=== PATIENT | female | born 1960 | race Two or more races ===

== ENCOUNTER 2025-02-15 02:47 | Inpatient (IN) | payer MEDICAID, OTHER ==
[2025-02-15] VITALS (15 sets, daily range): BP systolic 117–142; BP diastolic 57–78; TEMP 97.9–98.6; O2SAT 98–100
[~2025-02-15] VITALS: Ht 157.5 cm; Wt 84.8 kg
[2025-02-15 03:19] LABS: ABG BASE EXCESS -7.4 mmol/L (-2.0-3.0); ABG OXYGEN SATURATION 80.8 % (94.0-98.0); ABG PCO2 43.4 mmHg (32.0-45.0); ABG PH 7.262 (7.350-7.450); ABG PO2 50.3 mmHg (83.0-108.0); ABG TOTAL HEMOGLOBIN 9.1 G/dL (12.0-16.0); FRACTIONATED INSPIRED OXYGEN 21.0 %; SITE, ABG RIGHT RADIAL
[2025-02-15 03:25] LABS: PLATELET COUNT (AUTO) 332 K/uL (150-450); RED BLOOD CELL COUNT(AUTO) 2.99 MIL/uL (4.0-5.2); RED CELL DISTRIBUTION WIDTH 13.0 % (11.5-15.0); WHITE BLOOD COUNT (AUTO) 14.3 K/uL (4.3-11.0)
[2025-02-15 03:43] LABS: CALCIUM, SERUM 8.1 mg/dL (8.5-10.1); CREATININE 2.5 mg/dL (0.6-1.3); SODIUM SERUM 131 mmol/L (136-145); UREA NITROGEN, BLOOD 76 mg/dL (7-18)
[2025-02-15] MEDS ORDERED: INSULIN REGULAR, HUMAN 100 UNIT/ML 10 ML VIAL ONE (03:43)
[2025-02-15 03:44] LABS: INR 1.03 (0.91-1.10)
[2025-02-15] MEDS: INSULIN REGULAR, HUMAN 100 UNIT/ML 10 ML VIAL IV ONE (03:47)
[2025-02-15 03:51] LABS: LACTIC ACID 1.5 mmol/L (0.4-2.0)
[2025-02-15 03:57] LABS: ASPARTATE AMINOTRANSFERASE 32 U/L (15-37); TOTAL PROTEIN, SERUM 6.9 g/dL (6.4-8.2)
[2025-02-15 04:54] LABS: APPEARANCE,URINE CLEAR (CLEAR); BLOOD, URINE NEGATIVE Ery/uL (NEGATIVE); LEUKOCYTE ESTERASE ,URINE NEGATIVE (NEGATIVE); NITRITE, URINE NEGATIVE (NEGATIVE); UGLUCOSE 1+ mg/dL (NEGATIVE)
[2025-02-15 05:01] LABS: ADD URINE CULTURE NO; SQUAMOUS EPITHELIAL CELL,UR Few /HPF (None Seen)
[2025-02-15] MEDS ORDERED: FUROSEMIDE 40 MG/4 ML VIAL ONE ×2 (05:06→09:40)
[2025-02-15] MEDS: FUROSEMIDE 40 MG/4 ML VIAL IV ONE (05:14)
[2025-02-15] MEDS ORDERED: MAGNESIUM HYDROXIDE 30 ML UDC PO PRN (05:30)
[2025-02-15] MEDS ORDERED: DEXTROSE 50%-WATER 50 ML DISP.SYRIN IV PRN (05:30)
[2025-02-15] MEDS ORDERED: ONDANSETRON HCL/PF 4 MG/2 ML VIAL IVP PRN (05:30)
[2025-02-15] MEDS: ENOXAPARIN SODIUM 40 MG/0.4 ML DISP.SYRIN SQ SCH (06:30)
[2025-02-15] MEDS ORDERED: ENOXAPARIN SODIUM 40 MG/0.4 ML DISP.SYRIN SQ ONE (06:36)
[2025-02-15] MEDS: BLOOD SUGAR DIAGNOSTIC 1 EACH STRIP VI SCH (07:40)
[2025-02-15] MEDS: INSULIN REGULAR, HUMAN 100 UNIT/ML 3 ML VIAL SQ PRN (07:54)
[2025-02-15] MEDS ORDERED: ATOR80TA PO (08:26)
[2025-02-15] MEDS ORDERED: CARV12.52 PO (08:26)
[2025-02-15] MEDS ORDERED: EMPA10TA PO (08:26)
[2025-02-15] MEDS ORDERED: NIFE90TA61 PO (08:26)
[2025-02-15] MEDS ORDERED: METF-440 PO (08:26)
[2025-02-15] MEDS ORDERED: ASPI-1169 PO (08:26)
[2025-02-15] MEDS ORDERED: EZET10TA16 PO (08:26)
[2025-02-15] MEDS ORDERED: LOSA100T3 PO (08:26)
[2025-02-15] MEDS ORDERED: GABA300C PO (08:26)
[2025-02-15] MEDS ORDERED: PANTOPRAZOLE 40 MG VIAL ONE (09:40)
[2025-02-15] MEDS: FUROSEMIDE 40 MG/4 ML VIAL IV SCH (09:50)
[2025-02-15] MEDS: PANTOPRAZOLE 40 MG VIAL IV SCH (09:50)
[2025-02-15 10:27] LABS: ABG BASE EXCESS -4.1 mmol/L (-2.0-3.0); ABG OXYGEN SATURATION 93.3 % (94.0-98.0); ABG PCO2 40.3 mmHg (32.0-45.0); ABG PH 7.341 (7.350-7.450); ABG PO2 70.4 mmHg (83.0-108.0); ABG TOTAL HEMOGLOBIN 9.3 G/dL (12.0-16.0); FRACTIONATED INSPIRED OXYGEN 60.0 %; SET RATE, BG 16.0; SITE, ABG RIGHT BRACHIAL
[2025-02-15 13:33] LABS: PLATELET COUNT (AUTO) 381 K/uL (150-450); RED BLOOD CELL COUNT(AUTO) 3.17 MIL/uL (4.0-5.2); RED CELL DISTRIBUTION WIDTH 12.7 % (11.5-15.0); WHITE BLOOD COUNT (AUTO) 11.5 K/uL (4.3-11.0)
[2025-02-15 13:40] LABS: CALCIUM, SERUM 8.5 mg/dL (8.5-10.1); CREATININE 2.6 mg/dL (0.6-1.3); SODIUM SERUM 135.0 mmol/L (136-145); UREA NITROGEN, BLOOD 77.0 mg/dL (7-18)
[2025-02-16] VITALS (24 sets, daily range): BP systolic 103–157; BP diastolic 50–84; TEMP 97.6–98.8; O2SAT 95–99
[2025-02-16 04:25] LABS: CALCIUM, SERUM 8.6 mg/dL (8.5-10.1); CREATININE 2.3 mg/dL (0.6-1.3); PHOSPHORUS 4.1 mg/dL (2.5-4.9); SODIUM SERUM 138.0 mmol/L (136-145); UREA NITROGEN, BLOOD 75.0 mg/dL (7-18)
[2025-02-16 04:32] LABS: LDL 36.0 mg/dL (0-99)
[2025-02-16 04:39] LABS: PLATELET COUNT (AUTO) 381 K/uL (150-450); RED BLOOD CELL COUNT(AUTO) 3.10 MIL/uL (4.0-5.2); RED CELL DISTRIBUTION WIDTH 12.9 % (11.5-15.0); WHITE BLOOD COUNT (AUTO) 8.8 K/uL (4.3-11.0)
[2025-02-16] MEDS: *INSULIN REGULAR(HUMULIN R)HUM 100 UNIT/ML VIAL SQ PRN (21:52)
[2025-02-16 22:59] LABS: PROTEIN, BODY FLUID 3.7 G/DL
[2025-02-16 23:05] LABS: APPEARANCE,SPUN,BODY FLUID CLEAR (CLEAR); TOTAL VOLUME,BODY FLUID 1000 mL; WBC, BODY FLUID 3181 /cu. mm. (0-200)
[2025-02-16 23:38] LABS: MONOCYTES,BODY FLUID 3 %
[2025-02-17] VITALS (19 sets, daily range): BP systolic 115–159; BP diastolic 59–87; TEMP 98–98.4; O2SAT 90–98
[2025-02-17 04:39] LABS: PLATELET COUNT (AUTO) 477 K/uL (150-450); RED BLOOD CELL COUNT(AUTO) 3.54 MIL/uL (4.0-5.2); RED CELL DISTRIBUTION WIDTH 13.3 % (11.5-15.0); WHITE BLOOD COUNT (AUTO) 8.5 K/uL (4.3-11.0)
[2025-02-17 05:33] LABS: CREATINE KINASE, TOTAL 22.0 U/L (26-192); SODIUM SERUM 142.0 mmol/L (136-145)
[2025-02-17 05:34] LABS: ASPARTATE AMINOTRANSFERASE 20.0 U/L (15-37); CALCIUM, SERUM 8.6 mg/dL (8.5-10.1); CREATININE 1.9 mg/dL (0.6-1.3); PHOSPHORUS 4.6 mg/dL (2.5-4.9); TOTAL PROTEIN, SERUM 7.4 g/dL (6.4-8.2); UREA NITROGEN, BLOOD 65.0 mg/dL (7-18)
[2025-02-17 16:54] LABS: PROTEIN, BODY FLUID 4.3 G/DL
[2025-02-17 18:13] LABS: APPEARANCE,SPUN,BODY FLUID CLEAR (CLEAR); TOTAL VOLUME,BODY FLUID 350 mL; WBC, BODY FLUID 2302 /cu. mm. (0-200)
[2025-02-17 18:14] LABS: MONOCYTES,BODY FLUID 3 %
[2025-02-18] VITALS: BP 151/74; TEMP 99; O2SAT 95
[2025-02-18 04:00] VITALS: BP 141/65; TEMP 97.7; O2SAT 94
[2025-02-18 06:51] LABS: PLATELET COUNT (AUTO) 466 K/uL (150-450); RED BLOOD CELL COUNT(AUTO) 3.49 MIL/uL (4.0-5.2); RED CELL DISTRIBUTION WIDTH 12.9 % (11.5-15.0); WHITE BLOOD COUNT (AUTO) 8.0 K/uL (4.3-11.0)
[2025-02-18 06:58] LABS: ASPARTATE AMINOTRANSFERASE 23.0 U/L (15-37); CALCIUM, SERUM 8.4 mg/dL (8.5-10.1); CREATININE 2.0 mg/dL (0.6-1.3); PHOSPHORUS 4.5 mg/dL (2.5-4.9); SODIUM SERUM 139.0 mmol/L (136-145); TOTAL PROTEIN, SERUM 7.1 g/dL (6.4-8.2); UREA NITROGEN, BLOOD 68.0 mg/dL (7-18)
[2025-02-18 08:00] VITALS: BP 158/69; O2SAT 99
[2025-02-18 08:07] LABS: PTH, INTACT 60 pg/mL (15-65)
[2025-02-18] MEDS: NEOMY SULF/BACITRAC ZN/POLY 15 GM TUBE TP SCH (11:15)
[2025-02-18 12:01] VITALS: BP 150/73; TEMP 98.2; O2SAT 99
[2025-02-18 16:00] VITALS: BP 130/74; TEMP 98.2; O2SAT 97
[2025-02-18 20:00] VITALS: BP 152/80; TEMP 98.2; O2SAT 96
[2025-02-19] VITALS (8 sets, daily range): BP systolic 121–158; BP diastolic 64–81; TEMP 97.5–98.4; O2SAT 93–99
[2025-02-19 07:21] LABS: PLATELET COUNT (AUTO) 548 K/uL (150-450); RED BLOOD CELL COUNT(AUTO) 3.69 MIL/uL (4.0-5.2); RED CELL DISTRIBUTION WIDTH 13.1 % (11.5-15.0); WHITE BLOOD COUNT (AUTO) 9.2 K/uL (4.3-11.0)
[2025-02-19 07:26] LABS: ASPARTATE AMINOTRANSFERASE 20.0 U/L (15-37); CALCIUM, SERUM 8.8 mg/dL (8.5-10.1); CREATININE 1.9 mg/dL (0.6-1.3); PHOSPHORUS 4.6 mg/dL (2.5-4.9); SODIUM SERUM 139.0 mmol/L (136-145); TOTAL PROTEIN, SERUM 7.8 g/dL (6.4-8.2); UREA NITROGEN, BLOOD 68.0 mg/dL (7-18)
[2025-02-19] MEDS ORDERED: METFORMIN 500 MG TABLET PO SCH (09:00)
[2025-02-19] MEDS: ASPIRIN 81 MG TAB.CHEW PO SCH (09:34)
[2025-02-19] MEDS: EZETIMIBE 10 MG TABLET PO SCH (09:34)
[2025-02-19] MEDS: CARVEDILOL 12.5 MG TABLET PO SCH (09:35)
[2025-02-19] MEDS: EMPAGLIFLOZIN 10 MG TABLET PO SCH (09:45)
[2025-02-19] MEDS: POTASSIUM CHLORIDE 10 MEQ TABLET.SA PO ONE (11:51)
[2025-02-19] MEDS: GABAPENTIN 300 MG CAPSULE PO SCH (21:05)
[2025-02-20] VITALS (7 sets, daily range): BP systolic 99–124; BP diastolic 55–69; TEMP 97.5–98.4; O2SAT 90–99
[2025-02-20 08:07] LABS: CALCIUM, SERUM 8.7 mg/dL (8.5-10.1); CREATININE 2.4 mg/dL (0.6-1.3); SODIUM SERUM 144.0 mmol/L (136-145); UREA NITROGEN, BLOOD 71.0 mg/dL (7-18)
[2025-02-20] MEDS: ATORVASTATIN 40 MG TABLET PO SCH (09:10)
[2025-02-20] MEDS: PANTOPRAZOLE 40 MG TABLET.DR PO SCH (09:10)
[2025-02-20] MEDS: NIFEdipine XL (30MG) 30 MG TAB PO SCH (09:10)
[2025-02-20] MEDS: LOSARTAN POTASSIUM 50 MG TABLET PO SCH (09:11)
[2025-02-20] MEDS: ENOXAPARIN SODIUM 30 MG/0.3 ML DISP.SYRIN SQ SCH (09:14)
[2025-02-20] MEDS: POTASSIUM CHLORIDE 10 MEQ TABLET.SA PO ONE (11:54)
[2025-02-20] MEDS: MAG HYDROX/AL HYDROX/SIMETH 30 ML UDC PO PRN (16:24)
[2025-02-21] VITALS (9 sets, daily range): BP systolic 94–120; BP diastolic 51–66; TEMP 97.6–98.1; O2SAT 90–97
[2025-02-21 07:54] LABS: CALCIUM, SERUM 8.6 mg/dL (8.5-10.1); CREATININE 2.4 mg/dL (0.6-1.3); SODIUM SERUM 141.0 mmol/L (136-145); UREA NITROGEN, BLOOD 72.0 mg/dL (7-18)
[2025-02-21 08:17] LABS: PHOSPHORUS 5.0 mg/dL (2.5-4.9)
[2025-02-22 04:00] VITALS: BP 114/62; TEMP 98.2; O2SAT 94
[2025-02-22 07:13] LABS: CALCIUM, SERUM 8.7 mg/dL (8.5-10.1); CREATININE 2.7 mg/dL (0.6-1.3); SODIUM SERUM 141.0 mmol/L (136-145); UREA NITROGEN, BLOOD 74.0 mg/dL (7-18)
[2025-02-22 08:00] VITALS: BP 114/78; TEMP 98.1; O2SAT 96
[2025-02-22] MEDS: ACETAMINOPHEN 325 MG TABLET PO PRN (08:55)
[2025-02-22 16:00] VITALS: BP 100/62; TEMP 98.3; O2SAT 96
[2025-02-24 08:07] LABS: *SPE A/G RATIO 0.5 (0.7-1.7); *SPE ALBUMIN 2.1 g/dL (2.9-4.4); *SPE ALPHA-1-GLOBULIN 0.5 g/dL (0.0-0.4); *SPE ALPHA-2-GLOBULIN 1.3 g/dL (0.4-1.0); *SPE BETA GLOBULIN 1.4 g/dL (0.7-1.3); *SPE GLOBULIN, TOTAL 4.6 g/dL (2.2-3.9); *SPE M-SPIKE Not Observed g/dL (Not Observed); *SPE PROTEIN TOTAL 6.7 g/dL (6.0-8.5); *SPEGAMMA GLOBULIN 1.4 g/dL (0.4-1.8)
== END 2025-02-22 15:30 | disposition home health service (06) | DRG 720 ==
LOC: ER 02:49 → TELE IN 06:05 → ICU 07:58 → ICU IN 08:19 → ICU 09:38 → TELE1 02-17 17:54 → MEDSG1 02-20 10:08
PROVIDERS: ATTEND Internal Medicine
PROC: 5A09357 Assistance with Respiratory Ventilation, Less than 24 Consecutive Hours, Continuous Positive Airway Pressure (ICD-10-PCS; principal; 2025-02-15)
PROC: 0W993ZZ Drainage of Right Pleural Cavity, Percutaneous Approach (ICD-10-PCS; 2025-02-16)
PROC: 0W9B30Z Drainage of Left Pleural Cavity with Drainage Device, Percutaneous Approach (ICD-10-PCS; 2025-02-17)
DX: A41.9 Sepsis, unspecified organism (principal); J96.21 Acute and chronic respiratory failure with hypoxia; N17.0 Acute kidney failure with tubular necrosis; E43 Unspecified severe protein-calorie malnutrition; I31.39 Other pericardial effusion (noninflammatory); D68.59 Other primary thrombophilia; I50.33 Acute on chronic diastolic (congestive) heart failure; E87.1 Hypo-osmolality and hyponatremia; E88.09 Other disorders of plasma-protein metabolism, not elsewhere classified; J15.9 Unspecified bacterial pneumonia; I13.0 Hypertensive heart and chronic kidney disease with heart failure and stage 1 through stage 4 chronic kidney disease, or unspecified chronic kidney disease; I69.351 Hemiplegia and hemiparesis following cerebral infarction affecting right dominant side; N18.9 Chronic kidney disease, unspecified; D64.9 Anemia, unspecified; J96.22 Acute and chronic respiratory failure with hypercapnia; Z20.822 Contact with and (suspected) exposure to COVID-19; E11.22 Type 2 diabetes mellitus with diabetic chronic kidney disease; Z88.6 Allergy status to analgesic agent; Z68.36 Body mass index [BMI] 36.0-36.9, adult; E66.9 Obesity, unspecified; J98.11 Atelectasis; J90 Pleural effusion, not elsewhere classified; K80.20 Calculus of gallbladder without cholecystitis without obstruction; E11.65 Type 2 diabetes mellitus with hyperglycemia; R59.0 Localized enlarged lymph nodes; M89.8X9 Other specified disorders of bone, unspecified site; E87.5 Hyperkalemia; E87.6 Hypokalemia; L89.890 Pressure ulcer of other site, unstageable
CPT/HCPCS: 36415; 36600; 71045-TC; 71250-TC; 76770-TC; 80048-TC; 80053-TC; 80061-TC; 80076-TC; 81001; 82550-TC; 82803-TC; 82962-TC; 83605-TC; 83735-TC; 83880; 83970; 84100-TC; 84155; 84165; 84484-TC; 85025-TC; 85730-TC; 86850-TC; 87040-TC; 87070-TC; 87075-TC; 87081-TC; 87086-TC; 87102-TC; 89051-TC; 93307-TC; 94660; 94799-TC; 97110-TC; 97116-TC; 97530-TC; G0378; J1650; J1815; J1938; J2470

== ENCOUNTER 2025-02-26 13:01 | Inpatient (IN) | payer MEDICAID ==
[~2025-02-26] VITALS: Ht 157.5 cm; Wt 85.3 kg
[2025-02-26] VITALS (21 sets, daily range): BP systolic 71–95; BP diastolic 48–64; TEMP 96.7; O2SAT 93–99
[~2025-02-26 13:01] MED LIST: ASPI-1169 PO; ATOR80TA PO; CARV12.52 PO; EMPA10TA PO; EZET10TA16 PO; GABA300C PO; LOSA100T3 PO; METF-440 PO; NIFE90TA61 PO
[2025-02-26 14:14] LABS: PLATELET COUNT (AUTO) 388 K/uL (150-450); RED BLOOD CELL COUNT(AUTO) 3.24 MIL/uL (4.0-5.2); RED CELL DISTRIBUTION WIDTH 13.4 % (11.5-15.0); WHITE BLOOD COUNT (AUTO) 15.1 K/uL (4.3-11.0)
[2025-02-26 14:21] LABS: CALCIUM, SERUM 8.0 mg/dL (8.5-10.1); CREATININE 3.0 mg/dL (0.6-1.3); SODIUM SERUM 124 mmol/L (136-145)
[2025-02-26 14:30] LABS: UREA NITROGEN, BLOOD 114 mg/dL (7-18)
[2025-02-26 14:36] LABS: ASPARTATE AMINOTRANSFERASE 25 U/L (15-37)
[2025-02-26 14:37] LABS: NT-PRO BNP 1255 pg/mL (0-125); TOTAL PROTEIN, SERUM 7.5 g/dL (6.4-8.2)
[2025-02-26] MEDS ORDERED: COLC0.6C3 PO (14:41)
[2025-02-26] MEDS ORDERED: CEFTRIAXONE 1 G VIAL ONE (15:02)
[2025-02-26 15:18] LABS: INR 1.0 (0.91-1.10)
[2025-02-26] MEDS: IV NS 0.9% 1,000 ML BAG IV ONE (15:34)
[2025-02-26] MEDS: CEFTRIAXONE 1GM BAG (ER ONLY) 50 ML IV ONE (15:34)
[2025-02-26 15:53] LABS: APPEARANCE,URINE CLEAR (CLEAR); BLOOD, URINE NEGATIVE Ery/uL (NEGATIVE); LEUKOCYTE ESTERASE ,URINE TRACE (NEGATIVE); NITRITE, URINE NEGATIVE (NEGATIVE); UGLUCOSE 1+ mg/dL (NEGATIVE)
[2025-02-26 16:00] LABS: ADD URINE CULTURE YES
[2025-02-26] MEDS ORDERED: MAGNESIUM HYDROXIDE 30 ML UDC PO PRN (16:00)
[2025-02-26] MEDS ORDERED: ONDANSETRON HCL/PF 4 MG/2 ML VIAL IVP PRN (16:00)
[2025-02-26] MEDS: AZITHROMYCIN 500 MG in IV D5W 250 ML IV ONE (16:00)
[2025-02-26] MEDS ORDERED: INSULIN REGULAR, HUMAN 100 UNIT/ML 3 ML VIAL SQ PRN (17:00)
[2025-02-26] MEDS ORDERED: DEXTROSE 50%-WATER 50 ML DISP.SYRIN IV PRN (17:00)
[2025-02-26] MEDS: BLOOD SUGAR DIAGNOSTIC 1 EACH STRIP IN SCH (17:30)
[2025-02-26] MEDS ORDERED: NOREPINEPHRINE 8 MG in IV D5W 242 ML IV PRN ×2 (19:00→19:15)
[2025-02-26] MEDS: HEPARIN SODIUM, PORCINE 5000 UNITS/1 ML VIAL SQ SCH (21:49)
[2025-02-26] MEDS: INSULIN REGULAR, HUMAN 100 UNIT/ML 3 ML VIAL SQ PRN (21:51)
[2025-02-27] VITALS (36 sets, daily range): BP systolic 88–115; BP diastolic 47–74; TEMP 97.1–98.2; O2SAT 92–97
[2025-02-27 05:15] LABS: CALCIUM, SERUM 7.8 mg/dL (8.5-10.1); CREATININE 2.7 mg/dL (0.6-1.3); PHOSPHORUS 5.8 mg/dL (2.5-4.9); SODIUM SERUM 131.0 mmol/L (136-145)
[2025-02-27 05:19] LABS: PLATELET COUNT (AUTO) 359 K/uL (150-450); RED BLOOD CELL COUNT(AUTO) 3.16 MIL/uL (4.0-5.2); RED CELL DISTRIBUTION WIDTH 13.3 % (11.5-15.0); WHITE BLOOD COUNT (AUTO) 10.0 K/uL (4.3-11.0)
[2025-02-27 05:33] LABS: UREA NITROGEN, BLOOD 113.0 mg/dL (7-18)
[2025-02-27] MEDS: EZETIMIBE 10 MG TABLET PO SCH (08:43)
[2025-02-27] MEDS: ASPIRIN 81 MG TAB.CHEW PO SCH (08:43)
[2025-02-27] MEDS: PANTOPRAZOLE 40 MG VIAL IV SCH (08:43)
[2025-02-27] MEDS: ATORVASTATIN 40 MG TABLET PO SCH (08:43)
[2025-02-27] MEDS: POTASSIUM CHLORIDE 20 MEQ TAB.PRT.SR PO ONE (12:54)
[2025-02-27] MEDS ORDERED: CEFTRIAXONE 1 G in IV D5W 50 ML IV SCH (15:00)
[2025-02-27] MEDS: CEFTRIAXONE 1 G in IV D5W 50 ML IV SCH (15:13)
[2025-02-27] MEDS ORDERED: AZITHROMYCIN 500 MG in IV D5W 250 ML IV SCH (16:00)
[2025-02-27] MEDS: AZITHROMYCIN 500 MG in IV D5W 250 ML IV SCH (16:04)
[2025-02-28] VITALS (8 sets, daily range): BP systolic 106–122; BP diastolic 61–72; TEMP 97.9–98.7; O2SAT 94–96
[2025-02-28 07:22] LABS: PLATELET COUNT (AUTO) 429 K/uL (150-450); RED BLOOD CELL COUNT(AUTO) 3.32 MIL/uL (4.0-5.2); RED CELL DISTRIBUTION WIDTH 13.1 % (11.5-15.0); WHITE BLOOD COUNT (AUTO) 12.4 K/uL (4.3-11.0)
[2025-02-28 07:36] LABS: CALCIUM, SERUM 8.0 mg/dL (8.5-10.1); CREATININE 2.3 mg/dL (0.6-1.3); PHOSPHORUS 5.2 mg/dL (2.5-4.9); SODIUM SERUM 136.0 mmol/L (136-145)
[2025-02-28 08:33] LABS: UREA NITROGEN, BLOOD 98.0 mg/dL (7-18)
[2025-02-28] MEDS: PANTOPRAZOLE 40 MG TABLET.DR PO SCH (09:08)
[2025-02-28] MEDS: MAG HYDROX/AL HYDROX/SIMETH 30 ML UDC PO PRN (11:40)
[2025-03-01] VITALS: BP 120/64; TEMP 98.1; O2SAT 96
[2025-03-01 04:00] VITALS: BP 122/73; TEMP 98; O2SAT 96
[2025-03-01 06:30] LABS: RHEUMATOID FACTOR SCREEN NEGATIVE (NEGATIVE)
[2025-03-01 06:44] LABS: PLATELET COUNT (AUTO) 475 K/uL (150-450); RED BLOOD CELL COUNT(AUTO) 2.96 MIL/uL (4.0-5.2); RED CELL DISTRIBUTION WIDTH 13.2 % (11.5-15.0); WHITE BLOOD COUNT (AUTO) 11.5 K/uL (4.3-11.0)
[2025-03-01 06:53] LABS: CALCIUM, SERUM 8.5 mg/dL (8.5-10.1); CREATININE 2.2 mg/dL (0.6-1.3); PHOSPHORUS 4.5 mg/dL (2.5-4.9); SODIUM SERUM 139.0 mmol/L (136-145)
[2025-03-01 07:00] LABS: UREA NITROGEN, BLOOD 80.0 mg/dL (7-18)
[2025-03-01 07:09] LABS: IRON, SERUM 17.0 ug/dl (50-175)
[2025-03-01 08:00] VITALS: BP 116/65; TEMP 97.9; O2SAT 95
[2025-03-01] MEDS: ACETAMINOPHEN 325 MG TABLET PO PRN (10:12)
[2025-03-01 12:00] VITALS: BP 112/65; TEMP 98.3; O2SAT 95
[2025-03-01 16:00] VITALS: BP 132/74; TEMP 98.3; O2SAT 95
[2025-03-01 16:48] LABS: PROTEIN, BODY FLUID 4.6 G/DL
[2025-03-01 16:55] LABS: TOTAL VOLUME,BODY FLUID 700 mL; WBC, BODY FLUID 1467 /cu. mm. (0-200)
[2025-03-01 16:58] LABS: APPEARANCE,SPUN,BODY FLUID CLEAR (CLEAR)
[2025-03-01 19:24] LABS: MONOCYTES,BODY FLUID 7 %
[2025-03-01 20:00] VITALS: BP 126/73; TEMP 98.6; O2SAT 97
[2025-03-02] VITALS: BP 148/77; TEMP 98.2; O2SAT 98
[2025-03-02 04:00] VITALS: BP 141/72; TEMP 98.2; O2SAT 99
[2025-03-02 07:00] VITALS: BP 145/79; TEMP 98.1; O2SAT 97
[2025-03-02 08:00] VITALS: BP 145/79; TEMP 98.1; O2SAT 97
[2025-03-02 08:02] LABS: PLATELET COUNT (AUTO) 476 K/uL (150-450); RED BLOOD CELL COUNT(AUTO) 3.30 MIL/uL (4.0-5.2); RED CELL DISTRIBUTION WIDTH 13.0 % (11.5-15.0); WHITE BLOOD COUNT (AUTO) 9.0 K/uL (4.3-11.0)
[2025-03-02 08:07] LABS: CANCER AG, 125 162.0 U/mL (0.0-38.1); CANCER AG, 15-3 13.3 U/mL (0.0-25.0); CARCINOEMBRYONIC ANTIGEN (CEA) 4.3 ng/mL (0.0-4.7); IMMUNOGLOBULIN A, SERUM 623 mg/dL (87-352); IMMUNOGLOBULIN M, SERUM 63 mg/dL (26-217)
[2025-03-02 08:12] LABS: CALCIUM, SERUM 8.5 mg/dL (8.5-10.1); CREATININE 1.9 mg/dL (0.6-1.3); PHOSPHORUS 4.1 mg/dL (2.5-4.9); SODIUM SERUM 140.0 mmol/L (136-145); UREA NITROGEN, BLOOD 60.0 mg/dL (7-18)
[2025-03-02] MEDS: POTASSIUM CHLORIDE 20 MEQ TAB.PRT.SR PO SCH (09:39)
[2025-03-02 10:07] LABS: FOLIC ACID 11.4 ng/mL (>3.0); FREE KAPPA LT CHAINS SERUM 142.7 mg/L (3.3-19.4); FREE LAMBDA LT CHAIN SERUM 164.3 mg/L (5.7-26.3); KAPPA/LAMBDA RATIO SERUM 0.87 (0.26-1.65)
[2025-03-02] MEDS ORDERED: DIATR MEGLU/DIATRIZOATE SODIUM 30 ML BOTTLE (GASTROGRAPHIN) ONE (10:30)
[2025-03-02 16:00] VITALS: BP 137/69; TEMP 97.7; O2SAT 95
[2025-03-02 20:00] VITALS: BP 150/73; TEMP 97.7; O2SAT 97
[2025-03-03 04:01] VITALS: BP 153/77; TEMP 98.8; O2SAT 99
[2025-03-03 10:07] LABS: *ANA ANTI-CENTROMERE B AB <0.2 AI (0.0-0.9); *ANA ANTI-DNA(DS) AB, QN 3 IU/mL (0-9); *ANA ANTI-JO-1 <0.2 AI (0.0-0.9); *ANA ANTICHROMATIN ANTIBODY <0.2 AI (0.0-0.9); *ANA RNP ANTIBODIES <0.2 AI (0.0-0.9); *ANA SJOGREN'S ANTI-SS-A <0.2 AI (0.0-0.9); *ANA SJOGREN'S ANTI-SS-B <0.2 AI (0.0-0.9); *ANAANTI-SCLERODERMA-70 AB <0.2 AI (0.0-0.9); *ANASMITH AB <0.2 AI (0.0-0.9)
[2025-03-03 10:56] LABS: IRON, SERUM 30 ug/dl (50-175)
[2025-03-03 12:00] VITALS: BP 144/72; TEMP 98.3; O2SAT 99
[2025-03-03 16:07] LABS: CALCIUM, SERUM 8.3 mg/dL (8.5-10.1); CREATININE 1.7 mg/dL (0.6-1.3); SODIUM SERUM 138.0 mmol/L (136-145); UREA NITROGEN, BLOOD 45.0 mg/dL (7-18)
[2025-03-03 20:00] VITALS: BP 142/67; TEMP 98.4; O2SAT 98
[2025-03-04 04:00] VITALS: BP 154/67; TEMP 98.2; O2SAT 98
[2025-03-04 06:51] LABS: CALCIUM, SERUM 8.7 mg/dL (8.5-10.1); CREATININE 1.6 mg/dL (0.6-1.3); PLATELET COUNT (AUTO) 498 K/uL (150-450); RED BLOOD CELL COUNT(AUTO) 3.59 MIL/uL (4.0-5.2); RED CELL DISTRIBUTION WIDTH 13.2 % (11.5-15.0); SODIUM SERUM 142.0 mmol/L (136-145); UREA NITROGEN, BLOOD 41.0 mg/dL (7-18); WHITE BLOOD COUNT (AUTO) 9.2 K/uL (4.3-11.0)
[2025-03-04 12:00] VITALS: BP 146/72; TEMP 97.9; O2SAT 99
[2025-03-04 20:00] VITALS: BP 170/73; TEMP 98.1; O2SAT 98
[2025-03-04] MEDS: hydrALAZINE HCL IV 20 MG VIAL IV PRN (23:05)
[2025-03-05 04:00] VITALS: BP 141/90; TEMP 97.5; O2SAT 98
[2025-03-05 06:41] LABS: PLATELET COUNT (AUTO) 490 K/uL (150-450); RED BLOOD CELL COUNT(AUTO) 3.54 MIL/uL (4.0-5.2); RED CELL DISTRIBUTION WIDTH 13.2 % (11.5-15.0); WHITE BLOOD COUNT (AUTO) 9.0 K/uL (4.3-11.0)
[2025-03-05 09:04] LABS: CALCIUM, SERUM 8.7 mg/dL (8.5-10.1); CREATININE 1.7 mg/dL (0.6-1.3); SODIUM SERUM 142.0 mmol/L (136-145); UREA NITROGEN, BLOOD 34.0 mg/dL (7-18)
[2025-03-05 09:11] LABS: ASPARTATE AMINOTRANSFERASE 45.0 U/L (15-37); TOTAL PROTEIN, SERUM 7.3 g/dL (6.4-8.2)
[2025-03-05 12:32] VITALS: BP 141/67; TEMP 98.2; O2SAT 99
[2025-03-05 20:00] VITALS: BP 153/75; TEMP 98.2; O2SAT 95
[2025-03-06 04:00] VITALS: BP 154/76; TEMP 98.1; O2SAT 99
[2025-03-06 06:39] LABS: PLATELET COUNT (AUTO) 465 K/uL (150-450); RED BLOOD CELL COUNT(AUTO) 3.49 MIL/uL (4.0-5.2); RED CELL DISTRIBUTION WIDTH 13.4 % (11.5-15.0); WHITE BLOOD COUNT (AUTO) 9.6 K/uL (4.3-11.0)
[2025-03-06 07:09] LABS: CALCIUM, SERUM 8.8 mg/dL (8.5-10.1); CREATININE 1.6 mg/dL (0.6-1.3); PHOSPHORUS 4.6 mg/dL (2.5-4.9); SODIUM SERUM 144.0 mmol/L (136-145); UREA NITROGEN, BLOOD 34.0 mg/dL (7-18)
[2025-03-06 08:00] VITALS: BP 152/63; TEMP 98.1; O2SAT 94
[2025-03-08 05:07] LABS: *SPE A/G RATIO 0.4 (0.7-1.7); *SPE ALBUMIN 1.9 g/dL (2.9-4.4); *SPE ALPHA-1-GLOBULIN 0.5 g/dL (0.0-0.4); *SPE ALPHA-2-GLOBULIN 1.3 g/dL (0.4-1.0); *SPE BETA GLOBULIN 1.3 g/dL (0.7-1.3); *SPE GLOBULIN, TOTAL 4.5 g/dL (2.2-3.9); *SPE M-SPIKE Not Observed g/dL (Not Observed); *SPE PROTEIN TOTAL 6.4 g/dL (6.0-8.5); *SPEGAMMA GLOBULIN 1.4 g/dL (0.4-1.8)
== END 2025-03-06 16:03 | disposition home health service (06) | DRG 137 ==
LOC: ER 13:06 → TELE1 19:42 → ICU 19:58 → TELE1 02-27 12:32 → MEDSG1 03-02 10:32
PROVIDERS: ATTEND Internal Medicine
PROC: 0W9B3ZZ Drainage of Left Pleural Cavity, Percutaneous Approach (ICD-10-PCS; principal; 2025-03-01)
DX: J15.69 Pneumonia due to other Gram-negative bacteria (principal); J96.01 Acute respiratory failure with hypoxia; I50.33 Acute on chronic diastolic (congestive) heart failure; I31.39 Other pericardial effusion (noninflammatory); D68.59 Other primary thrombophilia; N17.9 Acute kidney failure, unspecified; N18.6 End stage renal disease; E11.22 Type 2 diabetes mellitus with diabetic chronic kidney disease; D63.8 Anemia in other chronic diseases classified elsewhere; E87.1 Hypo-osmolality and hyponatremia; E88.09 Other disorders of plasma-protein metabolism, not elsewhere classified; I13.2 Hypertensive heart and chronic kidney disease with heart failure and with stage 5 chronic kidney disease, or end stage renal disease; N39.0 Urinary tract infection, site not specified; E78.5 Hyperlipidemia, unspecified; I69.351 Hemiplegia and hemiparesis following cerebral infarction affecting right dominant side; J98.11 Atelectasis; Z79.84 Long term (current) use of oral hypoglycemic drugs; Z79.899 Other long term (current) drug therapy; Z79.82 Long term (current) use of aspirin; Z88.6 Allergy status to analgesic agent; B96.89 Other specified bacterial agents as the cause of diseases classified elsewhere; J90 Pleural effusion, not elsewhere classified; R59.0 Localized enlarged lymph nodes; K80.20 Calculus of gallbladder without cholecystitis without obstruction; Z68.36 Body mass index [BMI] 36.0-36.9, adult; Z91.199 Patient's noncompliance with other medical treatment and regimen due to unspecified reason
CPT/HCPCS: 36415; 71045-TC; 71250-TC; 76604-TC; 76856-TC; 80048-TC; 80053-TC; 80076-TC; 81001; 82378; 82607-TC; 82728-TC; 82784; 82962-TC; 83540-TC; 83605-TC; 83615-TC; 83735-TC; 83880; 84100-TC; 84155; 84165; 84443-TC; 84484-TC; 85025-TC; 85730-TC; 86140-TC; 86225; 86235; 86300; 86304; 86334; 86431-TC; 87040-TC; 87070-TC; 87075-TC; 87081-TC; 87086-TC; 87102-TC; 89051-TC; 93880-TC; 97110-TC; 97116-TC; 97530-TC; A4223; A6254; G0378; J0360; J0456; J0696; J1644; J1815; J2470; J7040; J7050; J7060; Q9963